=== PATIENT | female | born 2000 | race Caucasian/White ===

== ENCOUNTER → 2020-02-01 | Emergency (ER) | payer OTHER ==
[~2020-02-01] VITALS: Ht 152.4 cm; Wt 88.5 kg
[~2020-02-01] MED LIST: BECL0.07; CLARITAN; HYDROcodone-ACET 10/325MG TAB PO ONE; METH54TA4; PRIMROSE; RISP0.5T20; TOPAMAX; TOPI15CA; medroxyPROGESTERone ACETATE 5 MG TAB PO ONE
[2020-02-01 19:57] VITALS: BP 126/70
[2020-02-01 20:34] LABS: Basophils # (auto) 0 10 ^3/uL (0-0.2); Basophils % (auto) 0.3 % (0.0-2.0); Eosinophils # (auto) 0.2 10 ^3/uL (0-0.8); Eosinophils % (auto) 2.2 % (0.0-7.0); Hemoglobin 14.1 g/dL (12.2-16.2); Lymphocytes # (auto) 1.9 10 ^3/uL (0.4-5.4); Lymphocytes % (auto) 25.1 % (10.0-50.0); Mean Corpuscular Hemoglobin 28.1 pg (28.0-32.0); Mean Corpuscular Hgb Conc. 32.8 g/dL (32.0-36.0); Mean Corpuscular Volume 85.6 fL (80.0-100.0); Monocytes # (auto) 0.4 10 ^3/uL (0-1.3); Neutrophils % (auto) 66.4 % (37.0-80.0); Nucleated Red Blood Cells % 0.2 %; Platelet Count (auto) 215 10^3/uL (140-450); Red Blood Cells 5.02 10^6/uL (4.0-5.20); Red Cell Distribution Width 14.5 % (11.8-14.3); White Blood Cell 7.5 10^3/uL (4.4-10.8)
[2020-02-01 20:49] LABS: INR 0.94 (0.9-1.15); Partial Thromboplastin Time 29.8 sec (23.64-32.05)
[2020-02-01 20:50] LABS: Albumin 3.7 g/dL (3.4-5.0); Calcium 9.2 mg/dL (8.5-10.1); Potassium 4.1 mmol/L (3.5-5.1)
[2020-02-01 20:54] LABS: Bilirubin, Total 0.2 mg/dL (0.2-1.0); Total Protein 7.4 g/dL (6.4-8.2)
[2020-02-01 21:01] LABS: Urine WBC None Seen /hpf (0 - 5)
[2020-02-01 21:16] LABS: Urine Bacteria NONE SEEN /hpf (None Seen); Urine Blood 2+ /uL (Negative); Urine Specific Gravity 1.006 (1.001-1.035)
[2020-02-01 21:35] LABS: BUN/Creatinine Ratio 9.3
== END | disposition home or self-care (01) ==
LOC: ER 19:16
DX: N93.9 Abnormal uterine and vaginal bleeding, unspecified (principal)
CPT/HCPCS: 36415; 76830; 76856; 80053; 81001; 81025; 85025; 85610; 85730